=== PATIENT | male | born 1990 | race Caucasian/White ===

== ENCOUNTER 2016-07-16 19:48 | Emergency (ER) | payer BC ==
[~2016-07-16] VITALS: Ht 177.8 cm; Wt 72.6 kg
[2016-07-16] MEDS ORDERED: HYDROmorphone HCL 1 MG/ML SYRINGE (J1170) IM ONE (20:15)
[2016-07-16 20:50] VITALS: BP 144/77
--- NOTE | 2016-07-17 15:05 | REP ---
CHEST, ONE VIEW: HISTORY: Trauma. The lungs are clear. The heart is normal in size. The pulmonary vasculature is normal in appearance. The bony structure is intact. IMPRESSION: No acute disease. Signed by Raulito Solis MD 07/17/2016 08:11 A
--- NOTE | 2016-07-17 15:05 | REP ---
RIGHT SHOULDER, THREE VIEWS: HISTORY: Trauma. There is no acute fracture or dislocation. The joint spaces are normal in appearance. IMPRESSION: There is no acute fracture or dislocation. Signed by Raulito Solis MD 07/17/2016 08:11 A
== END 2016-07-16 20:55 | disposition home or self-care (01) ==
LOC: M ED 20:41
DX: S46.802A Unspecified injury of other muscles, fascia and tendons at shoulder and upper arm level, left arm, initial encounter (principal); W11.XXXA Fall on and from ladder, initial encounter; Y92.89 Other specified places as the place of occurrence of the external cause; Y93.89 Activity, other specified; Y99.0 Civilian activity done for income or pay
CPT/HCPCS: 71010; 73030; 96372; 99282; J1170

== ENCOUNTER → 2020-01-24 | Outpatient (REF) | payer BC ==
[2020-01-24 15:57] LABS: HEMOGLOBIN 14.8 g/dl (13.5-17.5); MEAN CORPUSCULAR HEMOGLOBIN 28.5 pg (27.0-33.0); MEAN CORPUSCULAR HGB CONC 32.9 g/dl (32.0-36.5); MEAN CORPUSCULAR VOLUME 86.7 fl (80.0-96.0); PLATELET COUNT, AUTOMATED 268 10^3/uL (150-450); RED BLOOD COUNT 5.19 10^6/uL (4.30-6.10); WHITE BLOOD COUNT 8.1 10^3/uL (4.0-10.0)
[2020-01-24 16:25] LABS: ALBUMIN 4.2 GM/DL (3.2-5.2); ALT/SGPT 73 U/L (12-78); BILIRUBIN,TOTAL 0.3 MG/DL (0.2-1.0); BLOOD UREA NITROGEN 12 MG/DL (7-18); CALCIUM LEVEL 9.6 MG/DL (8.5-10.1); CARBON DIOXIDE LEVEL 28 MEQ/L (21-32); CHLORIDE LEVEL 106 MEQ/L (98-107); CHOLESTEROL LEVEL 163 MG/DL (<200); CHOLESTEROL RISK RATIO 3.622 (<5); GLOMERULAR FILTRATION RATE > 60.0 (>60); GLUCOSE, FASTING 84 MG/DL (70-100); HDL CHOLESTEROL 45 MG/DL (>40); LDL CHOLESTEROL 99 MG/DL (<100); NON-HDL-C 118 MG/DL; POTASSIUM SERUM 4.6 MEQ/L (3.5-5.1); SODIUM LEVEL 141 MEQ/L (136-145); TOTAL PROTEIN 7.5 GM/DL (6.4-8.2); TRIGLYCERIDES LEVEL 94 MG/DL (<150)
[2020-01-24 16:57] LABS: HEPATITIS B SURFACE ANTIBODY NEGATIVE (POSITIVE)
[2020-01-24 17:12] LABS: HEPATITIS C VIRUS ABY INDEX 0.1 INDEX (<0.8)
[2020-01-24 17:13] LABS: HIV 1&2 SCREEN CENTAUR NEGATIVE (NEGATIVE)
== END ==
LOC: M SFHCPLAZ 13:36
DX: Z13.220 Encounter for screening for lipoid disorders (principal); Z13.1 Encounter for screening for diabetes mellitus; Z00.00 Encounter for general adult medical examination without abnormal findings; Z11.59 Encounter for screening for other viral diseases; Z11.4 Encounter for screening for human immunodeficiency virus [HIV]

== ENCOUNTER → 2020-02-06 | Outpatient (CLI) | payer BC ==
--- NOTE | 2020-02-06 10:32 | REPVR ---
PROCEDURE INFORMATION: Exam: MR Head Without Contrast Exam date and time: 02/06/2020 7:57 AM Age: 29 years old Clinical indication: Pain; Migraine; Without aura; Other: Sometimes; Patient HX: Chronic tension headache; Additional info: Chronic tension headache, hearing loss RT ear TECHNIQUE: Imaging protocol: MR of the head without contrast. COMPARISON: No relevant prior studies available. FINDINGS: Image quality is degraded by motion. Brain: There is no extra-axial collection or intra-axial mass. Normal parenchymal signal is preserved. There is no diffusion restriction. Cerebral ventricles: Normal. No ventriculomegaly. Bones/joints: Unremarkable. Paranasal sinuses: There is mild ethmoid and maxillary sinus mucosal thickening. Mastoid air cells: Normal as visualized. No mastoid effusion. Orbits: Unremarkable. Soft tissues: Unremarkable. IMPRESSION: No acute findings. Electronically signed by: Lola De La O On 02/06/2020 10:32:35 AM
--- NOTE | 2020-02-06 10:34 | REPVR ---
PROCEDURE INFORMATION: Exam: MR Angiogram Head Without Contrast, Arteries Exam date and time: 02/06/2020 7:57 AM Age: 29 years old Clinical indication: Pain; Patient HX: Chronic tension headache; Additional info: Chronic tension headache, hearing loss RT ear TECHNIQUE: Imaging protocol: MR angiogram head without contrast. Exam focused on the arteries. 3D rendering (Not supervised by radiologist): MIP and/or 3D reconstructed images were created by the technologist. COMPARISON: No relevant prior studies available. FINDINGS: ANTERIOR CIRCULATION: Right internal carotid artery: Intracranial segment is patent with no significant stenosis. No aneurysm. Right middle cerebral artery: No occlusion or significant stenosis. No aneurysm. Right anterior cerebral artery: No occlusion or significant stenosis. No aneurysm. Left internal carotid artery: Intracranial segment is patent with no significant stenosis. No aneurysm. Left middle cerebral artery: No occlusion or significant stenosis. No aneurysm. Left anterior cerebral artery: No occlusion or significant stenosis. No aneurysm. POSTERIOR CIRCULATION: Right vertebral artery: No occlusion or significant stenosis. No aneurysm. Left vertebral artery: No occlusion or significant stenosis. No aneurysm. Basilar artery: No occlusion or significant stenosis. No aneurysm. Right posterior cerebral artery: No occlusion or significant stenosis. No aneurysm. Left posterior cerebral artery: No occlusion or significant stenosis. No aneurysm. IMPRESSION: No stenosis or occlusion. Electronically signed by: Lola De La O On 02/06/2020 10:34:22 AM
== END ==
LOC: M RAD 06:28
PROVIDERS: ATTEND Psychiatry & Neurology Neurology
DX: G44.229 Chronic tension-type headache, not intractable (principal); H91.91 Unspecified hearing loss, right ear; H93.11 Tinnitus, right ear

== ENCOUNTER → 2020-05-23 | Outpatient (CLI) | payer BC ==
--- NOTE | 2020-05-23 14:47 | REPPI ---
INDICATION: M25.512 LEFT SHOULDER PAIN COMPARISON: None. TECHNIQUE: Internal rotation, external rotation, and Y view. FINDINGS: No acute fracture or dislocation. The acromioclavicular and glenohumeral joints are intact. No periarticular calcifications or degenerative changes are appreciated. Sub acromial space is normal. Surrounding soft tissues are unremarkable. IMPRESSION: Normal age-appropriate left shoulder radiographs. <Electronically signed by Junaid Reyes > 05/23/20 [id number]
== END ==
LOC: M PLAIMG 14:34
PROVIDERS: ATTEND Internal Medicine
DX: M25.512 Pain in left shoulder (principal)

== ENCOUNTER → 2020-07-25 | Outpatient (CLI) | payer BC ==
--- NOTE | 2020-07-25 13:18 | REP ---
INDICATION: RT LEG PAIN X 3 MONTHS ? DVT/LIGAMENTOUS COMPARISON: None. TECHNIQUE: Real time compression and duplex Doppler interrogation of the right lower extremity deep venous system is performed. FINDINGS: The right common femoral, superficial femoral and popliteal veins are fully compressible with transducer pressure and demonstrate normal spontaneous and phasic flow, without evidence of deep venous thrombosis. IMPRESSION: No evidence of deep venous thrombosis of the right lower extremity femoral popliteal venous system. <Electronically signed by Josh Kincaid > 07/25/20 [id number]
== END ==
LOC: M RAD 12:36
PROVIDERS: ATTEND Hospitalist
DX: M79.661 Pain in right lower leg (principal)

== ENCOUNTER → 2020-09-24 | Outpatient (CLI) | payer BC ==
--- NOTE | 2020-09-24 15:14 | REP ---
INDICATION: PAIN RT KNEE. COMPARISON: None. TECHNIQUE: Sagittal spin-echo proton density, T2 STIR and T2 FLASH. Coronal spin-echo proton density and fat suppressed proton density. Axial fat suppressed proton density. FINDINGS: The anterior and posterior horns of the lateral meniscus are within normal limits. The anterior and posterior horns of the medial meniscus are within normal limits. The anterior and posterior cruciate ligaments are intact. The quadriceps and patellar tendons are intact. The medial and lateral collateral ligaments are intact. The medial and lateral patellar retinacula are intact. The articular cartilages are within normal limits. There is no joint effusion or Johnson's cyst. There is minimal patchy T2 hyper signal seen in the lateral femoral condyle and proximal lateral tibial metaphysis. IMPRESSION: 1. There is no evidence of acute internal derangement. 2. Minimal signal changes seen, as described above, possibly secondary to a slight overuse syndrome. This be correlated clinically with appropriate follow-up. <Electronically signed by Chance Davis > 09/24/20 [id number]
== END ==
LOC: M PLAIMG 13:58
PROVIDERS: ATTEND Hospitalist
DX: M25.561 Pain in right knee (principal)

== ENCOUNTER 2022-10-11 08:23 | Emergency (ER) | payer OTHER, BC ==
[~2022-10-11] VITALS: Ht 175.3 cm; Wt 88.4 kg
[~2022-10-11 08:23] MED LIST: AMOX875T2 PO
[2022-10-11 08:24] VITALS: BP 137/83; TEMP 97.5; O2SAT 99
== END 2022-10-11 10:00 | disposition home or self-care (01) ==
LOC: M ED 08:23
DX: Z48.02 Encounter for removal of sutures (principal)

== ENCOUNTER → 2023-12-19 | Outpatient (CLI) | payer BC | LOC: M RAD 12:27 | PROVIDERS: ATTEND Student in an Organized Health Care Education/Training Program | DX: D17.0 Benign lipomatous neoplasm of skin and subcutaneous tissue of head, face and neck (principal) ==

== ENCOUNTER → 2024-03-27 | Outpatient (CLI) | payer BC ==
[2024-03-27 18:52] LABS: HEMATOCRIT 45.2 % (42.0-52.0); HEMOGLOBIN 15.3 g/dl (13.5-17.5); MEAN CORPUSCULAR HEMOGLOBIN 29.6 pg (27.0-33.0); MEAN CORPUSCULAR HGB CONC 33.8 g/dl (32.0-36.5); MEAN CORPUSCULAR VOLUME 87.4 fl (80.0-96.0); PLATELET COUNT, AUTOMATED 310 10^3/uL (150-450); RED BLOOD COUNT 5.17 10^6/uL (4.30-6.10); WHITE BLOOD COUNT 7.4 10^3/uL (4.0-10.0)
[2024-03-27 19:12] LABS: ALBUMIN 4.2 G/DL (3.2-5.2); ALKALINE PHOSPHATASE 57 U/L (40-129); ALT/SGPT 22 U/L (7.0-40); AST/SGOT 17 U/L (<34); BILIRUBIN,TOTAL 0.3 MG/DL (0.3-1.2); BLOOD UREA NITROGEN 16 MG/DL (9-23); CALCIUM LEVEL 9.9 MG/DL (8.5-10.1); CARBON DIOXIDE LEVEL 29 MMOL/L (20-31); CHLORIDE LEVEL 104 MMOL/L (98-107); CHOLESTEROL LEVEL 184 MG/DL (<200); CHOLESTEROL RISK RATIO 5.25 (<5); CREATININE FOR GFR 0.85 MG/DL (0.70-1.30); GLOMERULAR FILTRATION RATE > 60.0 (>60); GLUCOSE, FASTING 70 MG/DL (60-100); LDL CHOLESTEROL 96.4 MG/DL (<100); POTASSIUM SERUM 4.3 MMOL/L (3.5-5.1); SODIUM LEVEL 142 MMOL/L (136-145); TOTAL PROTEIN 7.5 G/DL (5.7-8.2); TRIGLYCERIDES LEVEL 263 MG/DL (<150)
[2024-03-27 19:13] LABS: TOTAL 25(OH) VITAMIN D 28.8 NG/ML (20.0-100.0)
== END ==
LOC: M PLALAB 15:28
PROVIDERS: ATTEND Student in an Organized Health Care Education/Training Program
DX: Z13.220 Encounter for screening for lipoid disorders (principal)

== ENCOUNTER → 2024-10-02 | Outpatient (REF) | payer BC | LOC: M SFHCPLAZ 20:13 | PROVIDERS: ATTEND Student in an Organized Health Care Education/Training Program | DX: Z53.9 Procedure and treatment not carried out, unspecified reason (principal) ==

== ENCOUNTER 2024-10-28 12:06 | Emergency (ER) | payer BC ==
[~2024-10-28] VITALS: Ht 175.3 cm; Wt 88.9 kg
[2024-10-28] MEDS: NS (Normal Saline) 0.9% 1,000 ML IV ONE (16:40)
[2024-10-28] MEDS: TETANUS/DIPHTH/ACEL. PERTUSSIS 0.5 ML SYR IM ONE (17:33)
[2024-10-28] MEDS: LIDOCAINE 1% MDV 20 ML VIAL SC ONE (17:33)
[2024-10-28 18:14] VITALS: BP 127/81; TEMP 98.3; O2SAT 99
== END 2024-10-28 18:20 | disposition home or self-care (01) ==
LOC: M ED 12:06
DX: S61.011A Laceration without foreign body of right thumb without damage to nail, initial encounter (principal); W26.9XXA Contact with unspecified sharp object(s), initial encounter; Y92.009 Unspecified place in unspecified non-institutional (private) residence as the place of occurrence of the external cause; Y93.9 Activity, unspecified; Y99.9 Unspecified external cause status; F17.200 Nicotine dependence, unspecified, uncomplicated